=== PATIENT | male | born 1995 | race Caucasian/White ===

== ENCOUNTER 2024-12-08 21:28 | Emergency (ER) | payer OTHER ==
--- NOTE | 2024-12-08 21:46 | ED ---
Upper Extremity HPI - General Chief Complaint: Extremity Injury, Upper Stated Complaint: [facility] - L Ring Finger Injury Time Seen by Provider: 12/08/24 21:40 Source: patient, RN notes reviewed Mode of arrival: ambulatory - History of Present Illness Initial Comments: This is a 29-year-old male presenting with left ring finger injury/pain (6/10) less than 30 minutes ago. Patient states he attempted catching a piece of metal at work when it fell onto his ring finger, crushing/pinching at between itself and a pipe. Patient denies open wounds/laceration, bleeding. States he is u nable to flex DIP joint of affected finger. Denies other injuries, loss of sensation or pallor. MD Complaint: Injury to:: left Onset/Timin -: minutes(s) Time: 21:30 Other Extremity Injury: Fingers: Left Other Injuries: none Handedness: left Place: work Severity scale (1-10): 6 Improves With: immobilization, medication Worsens With: movement of extremity Context: direct blow Associated Symptoms: denies other symptoms Treatments Prior to Arrival: NSAIDS - Related Data Allergies Allergy/AdvReac Type Severity Reaction Status Date / Time tramadol Allergy Rash/Hives Verified 12/08/24 21:38 Review of Systems ROS Statement: Those systems with pertinent positive or pertinent negative responses have been documented in the HPI. ROS Other: All systems not noted in ROS Statement are negative. Past Medical History Past Medical History: No Reported History History of Any Multi-Drug Resistant Organisms: None Reported Past Surgical History: No Surgical Hx Reported Past Psychological History: No Psychological Hx Reported Smoking Status: Vaper Past Alcohol Use History: None Reported Past Drug Use History: None Reported General Exam General appearance: alert, in no apparent distress Head exam: Present: atraumatic, normocephalic, normal inspection Eye exam: Present: normal appearance, PERRL, EOMI. Absent: scleral icterus, conjunctival injection, periorbital swelling ENT exam: Present: normal exam, mucous membranes moist Neck exam: Present: normal inspection. Absent: tenderness, meningismus, lymphadenopathy Respiratory exam: Present: normal lung sounds bilaterally. Absent: respiratory distress, wheezes, rales, rhonchi, stridor Cardiovascular Exam: Present: regular rate, normal rhythm, normal heart sounds. Absent: systolic murmur, diastolic murmur, rubs, gallop, clicks GI/Abdominal exam: Present: soft, normal bowel sounds. Absent: distended, tenderness, guarding, rebound, rigid Extremities exam: Present: normal inspection, tenderness (Left fourth digit DIP joint TTP with small area of ecchymosis noted on palmar aspect), normal capillary refill, other (Left ring finger distal neurovascular intact and capillary refill less than 2 seconds. Positive DIP joint TTP with minimal ability to flex joint. Patient notes referred pain into forearm with attempted flexion. Negative open wound, crepitus, deformity). Absent: pedal edema, joint swelling, calf tenderness Back exam: Present: normal inspection Neurological exam: Present: alert, oriented X3, CN II-XII intact Psychiatric exam: Present: normal affect, normal mood Skin exam: Present: warm, dry, intact, normal color. Absent: rash Course Vital Signs 12/08/24 21:35 Temperature 98.3 F Pulse Rate 72 Respiratory 18 Rate Blood Pressure 106/63 O2 Sat by Pulse 98 Oximetry Medical Decision Making - Medical Decision Making Was pt. sent in by a medical professional or institution ([facility], [employer], urgent care, hospital, or fci...) When possible be specific @ -No Did you speak to anyone other than the patient for history (EMS, parent, family, police, friend...)? What history was obtained from this source @ -No Did you review nursing and triage notes (agree or disagree)? Why? @ -I reviewed and agree with nursing and triage notes Were old charts reviewed (outside hosp., previous admission, EMS record, old EKG, old radiological studies, urgent care reports/EKG's, fci records)? Report findings @ -No old charts were reviewed Differential Diagnosis (chest pain, altered mental status, abdominal pain women, abdominal pain men, vaginal bleeding, weakness, fever, dyspnea, syncope, headache, dizziness, GI bleed, back pain, seizure, CVA, palpatations, mental health, musculoskeletal)? @ -Finger contusion, finger fracture, dislocation, sprain EKG interpreted by me (3pts min.). @ -Not done X-rays interpreted by me (1pt min.). @ -Finger x-ray shows no acute fracture, dislocation or soft tissue edema. CT interpreted by me (1pt min.). @ -None done U/S interpreted by me (1pt. min.). @ -None done What testing was considered but not performed or refused? (CT, X-rays, U/S, labs)? Why? @ -None What meds were considered but not given or refused? Why? @ -Pain medication offered but patient states he recently took ibuprofen and pain is tolerable at this time. Did you discuss the management of the patient with other professionals (professionals i.e. Dr., PA, [employer], lab, RT, psych nurse, social insurance specialist, oil expert, teacher, air defence officer, ed case manager)? Give summary @ -No Was smoking cessation discussed for >3mins.? @ -No Was critical care preformed (if so, how long)? @ -No Were there social determinants of health that impacted care today? How? (Homelessness, low income, unemployed, alcoholism, drug addiction, transportation, low edu. Level, literacy, decrease access to med. care, snf, rehab)? @ -No Was there de-escalation of care discussed even if they declined (Discuss DNR or withdrawal of care, Hospice)? DNR status @ -No What co-morbidities impacted this encounter? (DM, HTN, Smoking, COPD, CAD, Cancer, CVA, ARF, Chemo, Hep., AIDS, mental health diagnosis, sleep apnea, morbid obesity)? @ -None Was patient admitted / discharged? Hospital course, mention meds given and route, prescriptions, significant lab abnormalities, going to OR and other pertinent info. @ -Finger x-ray shows no acute fracture, dislocation or soft tissue edema. Patient declined pain medication both in ER and to pharmacy. Finger splint applied. Advised RICE and alternating Tylenol/Motrin every 4 hours for pain. Advised follow-up with orthopedics if pain/range of motion does not improve within [address] patient with Dr. Etienne. Undiagnosed new problem with uncertain prognosis? @ -No Drug Therapy requiring intensive monitoring for toxicity (Heparin, Nitro, Insulin, Cardizem)? @ -No Were any procedures done? @ -No Diagnosis/symptom? @ -Finger contusion/crush injury Acute, or Chronic, or Acute on Chronic? @ -Acute Uncomplicated (without systemic symptoms) or Complicated (systemic symptoms)? @ -Uncomplicated Side effects of treatment? @ -No Exacerbation, Progression, or Severe Exacerbation? @ -No Poses a threat to life or bodily function? How? (Chest pain, [place], [place], pneumonia, PE, COPD, DKA, ARF, appy, cholecystitis, CVA, Diverticulitis, Homicidal, Suicidal, threat to staff... and all critical care pts) @ -No Disposition Clinical Impression: Crushing injury of finger Disposition: HOME SELF-CARE Condition: Good Additional Instructions: Rest, ice, compression and elevation. Alternate Tylenol/Motrin every 4 hours for pain. Follow-up with Ortho if pain/flexion ability of finger does not improve in 1 week. Is patient prescribed a controlled substance at d/c from ED?: No Referrals: None,Stated [Primary Care Provider] - 1-2 days Rey Velazquez DO [Doctor of Osteopathic Medicine] - 1-2 days Gab Valdivia MD [STAFF PHYSICIAN] - 1-2 days Time of Disposition: 22:18
--- NOTE | 2024-12-08 22:00 | XR ---
EXAMINATION TYPE: XR finger LT DATE OF EXAM: 12/08/2024 9:53 PM COMPARISON: None. CLINICAL INDICATION: Male, 29 years old with history of Fourth digit DIP joint TTP, unable to flex; P HH TECHNIQUE: XR finger LT Frontal, lateral and oblique views were obtained. FINDINGS: Normal alignment of the visualized joints. No acute osseous pathology is identified. No e vidence of soft tissue swelling. No significant degeneration IMPRESSION: No acute osseous pathology. [facility], , 12/08/2024 9:58 PM
[2024-12-08 23:29] VITALS: BP 115/65; PULSE 74; RESP 17; TEMP 98.4
== END 2024-12-08 22:38 | disposition home or self-care (01) ==
LOC: EC 21:28
DX: S67.195A Crushing injury of left ring finger, initial encounter (principal); F17.290 Nicotine dependence, other tobacco product, uncomplicated; Z88.5 Allergy status to narcotic agent; W20.8XXA Other cause of strike by thrown, projected or falling object, initial encounter
CPT/HCPCS: 99283